=== PATIENT | female | born 1955 | race Two or more races ===

== ENCOUNTER 2021-01-17 16:30 | Emergency (ER) | payer BC ==
[~2021-01-17] VITALS: Ht 157.5 cm; Wt 81.6 kg
[~2021-01-17 16:30] MED LIST: ALBU18 IN; FLUT500M6 IN; HYDR25TA4 PO; INSLANTI SC; LISI20TA28 PO; MULTTAB99 PO; SITA50TA13 PO; [UNRECOGNIZED DRUG - CODE] PO
[2021-01-17 18:33] LABS: Basophils # (auto) 0.1 10 ^3/uL (0-0.2); Basophils % (auto) 0.9 % (0.0-2.0); Eosinophils # (auto) 0.2 10 ^3/uL (0-0.8); Eosinophils % (auto) 1.7 % (0.0-7.0); Hematocrit 39.8 % (36.0-46.0); Hemoglobin 12.2 g/dL (12.2-16.2); Lymphocytes # (auto) 1.1 10 ^3/uL (0.4-5.4); Lymphocytes % (auto) 8.3 % (10.0-50.0); Mean Corpuscular Hemoglobin 19.2 pg (28.0-32.0); Mean Corpuscular Hgb Conc. 30.6 g/dL (32.0-36.0); Mean Corpuscular Volume 62.8 fL (80.0-100.0); Monocytes # (auto) 0.7 10 ^3/uL (0-1.3); Monocytes % (auto) 5.7 % (0.0-12.0); Neutrophils # (auto) 10.7 10 ^3/uL (1.6-8.6); Neutrophils % (auto) 83.4 % (37.0-80.0); Red Blood Cells 6.34 10^6/uL (4.0-5.20); Red Cell Distribution Width 14.9 % (11.8-14.3); White Blood Cell 12.8 10^3/uL (4.4-10.8)
[2021-01-17 18:52] LABS: Chloride 101 mmol/L (98-107); Potassium 3.9 mmol/L (3.5-5.1); Sodium 134 mmol/L (136-145)
[2021-01-17 19:03] LABS: Alanine Aminotransferase 31 U/L (13-56); Albumin 3.1 g/dL (3.4-5.0); Alkaline Phosphatase 86 U/L (45-117); Anion Gap 7 (5-15); Aspartate Aminotransferase 11 U/L (15-37); Bilirubin, Total 0.4 mg/dL (0.2-1.0); Blood Urea Nitrogen 14 mg/dL (7-18); Calcium 8.4 mg/dL (8.5-10.1); Carbon Dioxide 26 mmol/L (21-32); GFR African American 139 mL/min; GFR Non-African American 115 mL/min; Glucose 281 mg/dL (74-106); Total Protein 7.5 g/dL (6.4-8.2)
[2021-01-17 19:13] LABS: Urine Bacteria FEW /hpf (None Seen); Urine Blood Negative /uL (Negative); Urine Mucus FEW (None Seen); Urine Specific Gravity 1.023 (1.001-1.035); Urine WBC 6 /hpf (0 - 5)
[2021-01-18 05:55] VITALS: BP 102/53
== END 2021-01-18 06:02 | disposition home or self-care (01) ==
LOC: ER 16:30
DX: R10.12 Left upper quadrant pain (principal); R19.7 Diarrhea, unspecified; I10 Essential (primary) hypertension; E11.9 Type 2 diabetes mellitus without complications; E78.00 Pure hypercholesterolemia, unspecified; J45.909 Unspecified asthma, uncomplicated; Z91.018 Allergy to other foods; Z88.1 Allergy status to other antibiotic agents; Z88.8 Allergy status to other drugs, medicaments and biological substances; Z88.9 Allergy status to unspecified drugs, medicaments and biological substances; Z79.899 Other long term (current) drug therapy; Z90.89 Acquired absence of other organs; Z98.890 Other specified postprocedural states
CPT/HCPCS: 36415; 74176; 80053; 81001; 82962; 84484; 85025; 87426; 93005

== ENCOUNTER 2021-05-01 20:25 | Inpatient (IN) | payer BC ==
[~2021-05-01] VITALS: Ht 154.9 cm; Wt 85.0 kg
[2021-05-01] MEDS ORDERED: IPRATROPIUM BROM 0.5 MG/2.5ML INH SOL NEB ONE (22:15)
[2021-05-01] MEDS ORDERED: ALBUTEROL SULF 2.5 MG/0.5ML(0.5%) NEB SOLN NEB ONE (22:15)
[2021-05-01 22:16] LABS: Basophils # (auto) 0.1 10 ^3/uL (0-0.2); Basophils % (auto) 0.5 % (0.0-2.0); Lymphocytes # (auto) 0.7 10 ^3/uL (0.4-5.4); Monocytes # (auto) 0.4 10 ^3/uL (0-1.3); Monocytes % (auto) 2.8 % (0.0-12.0); Red Cell Distribution Width 15.4 % (11.8-14.3)
[2021-05-01 22:18] LABS: Eosinophils # (auto) 0.5 10 ^3/uL (0-0.8); Eosinophils % (auto) 3.3 % (0.0-7.0); Hemoglobin 11.3 g/dL (12.2-16.2); Lymphocytes % (auto) 4.5 % (10.0-50.0); Mean Corpuscular Hemoglobin 19.3 pg (28.0-32.0); Mean Corpuscular Hgb Conc. 30.4 g/dL (32.0-36.0); Mean Corpuscular Volume 63.5 fL (80.0-100.0); Neutrophils # (auto) 13.3 10 ^3/uL (1.6-8.6); Neutrophils % (auto) 88.9 % (37.0-80.0); Red Blood Cells 5.83 10^6/uL (4.0-5.20); White Blood Cell 14.9 10^3/uL (4.4-10.8)
[2021-05-01 22:34] LABS: Albumin 3.2 g/dL (3.4-5.0); Calcium 8.5 mg/dL (8.5-10.1); Magnesium 1.9 mg/dL (1.6-2.6); Potassium 3.4 mmol/L (3.5-5.1)
[2021-05-01 22:39] LABS: INR 1.01 (0.9-1.15)
[2021-05-01 22:45] LABS: BUN/Creatinine Ratio 25.9; Bilirubin, Total 0.7 mg/dL (0.2-1.0); Total Protein 7.2 g/dL (6.4-8.2)
[2021-05-01] MEDS ORDERED: DexAMETHasone SOD PHOS 10MG/1ML VIAL INJ IV ONE (22:45)
[2021-05-01] MEDS ORDERED: AZITHROMYCIN 500MG/ 250ML 250 ML IV ONE (22:45)
[2021-05-01] MEDS ORDERED: DEXTROSE (50%) 50ML SYRG IV PRN (23:45)
[2021-05-01] MEDS ORDERED: DOCUSATE SOD 100 MG CAP PO PRN (23:45)
[2021-05-01] MEDS ORDERED: ACETAMINOPHEN 500 MG TAB PO PRN (23:45)
[2021-05-01] MEDS ORDERED: ONDANSETRON HCL 4 MG/2 ML VIAL IV PRN (23:45)
[2021-05-01] MEDS ORDERED: ALBUTEROL SULF HFA 90MCG INH 200DOSE IN PRN (23:45)
[2021-05-01] MEDS ORDERED: POTASSIUM CHL 20 Meq TABLET PO ONE (23:45)
[2021-05-02] MEDS ORDERED: NITROGLYCERIN 0.4 MG SL TAB SL PRN (00:15)
[2021-05-02] MEDS ORDERED: MORPHINE SULFATE INJECTION 2 MG/ML SYRG IV PRN (00:15)
[2021-05-02] MEDS: HYDROcodone-ACET 5/325MG TAB PO PRN ×3 (00:54→21:44)
[2021-05-02] MEDS ORDERED: ALBUTEROL SULF 2.5 MG/0.5ML(0.5%) NEB SOLN ONE (06:10)
[2021-05-02] MEDS ORDERED: IPRATROPIUM BROM 0.5 MG/2.5ML INH SOL ONE (06:10)
[2021-05-02] MEDS ORDERED: ALBUTEROL SULF 2.5 MG/0.5ML(0.5%) NEB SOLN NEB ONE (06:15)
[2021-05-02] MEDS ORDERED: DexAMETHasone SOD PHOS 10MG/1ML VIAL INJ IV ONE (06:15)
[2021-05-02] MEDS ORDERED: IPRATROPIUM BROM 0.5 MG/2.5ML INH SOL NEB ONE (06:15)
[2021-05-02 06:18] LABS: Basophils # (auto) 0 10 ^3/uL (0-0.2); Eosinophils # (auto) 0 10 ^3/uL (0-0.8); Lymphocytes # (auto) 0.7 10 ^3/uL (0.4-5.4); Monocytes # (auto) 0.1 10 ^3/uL (0-1.3); Nucleated Red Blood Cells % 0.1 %
[2021-05-02 06:21] LABS: Hematocrit 36.9 % (36.0-46.0); Hemoglobin 11.1 g/dL (12.2-16.2); Lymphocytes % (auto) 5.2 % (10.0-50.0); Mean Corpuscular Hemoglobin 19.5 pg (28.0-32.0); Mean Corpuscular Hgb Conc. 30.2 g/dL (32.0-36.0); Mean Corpuscular Volume 64.6 fL (80.0-100.0); Neutrophils # (auto) 13.1 10 ^3/uL (1.6-8.6); Neutrophils % (auto) 93.8 % (37.0-80.0); Red Blood Cells 5.71 10^6/uL (4.0-5.20); Red Cell Distribution Width 15.3 % (11.8-14.3); White Blood Cell 13.9 10^3/uL (4.4-10.8)
[2021-05-02 06:33] LABS: BUN/Creatinine Ratio 21.9; Calcium 8.5 mg/dL (8.5-10.1)
[2021-05-02 06:38] LABS: Bilirubin, Total 0.6 mg/dL (0.2-1.0)
[2021-05-02 06:42] VITALS: BP 125/61
[2021-05-02] MEDS: ACCU-CHEK COMFORT CURVE STRIP VI SCH ×4 (07:45→21:39)
[2021-05-02] MEDS: InsuLIN REG 1unit/0.01ml Soln (100units/ml) SC SCH ×4 (07:52→21:41)
[2021-05-02] MEDS ORDERED: DexAMETHasone SOD PHOS 10MG/1ML VIAL INJ IV SCH (10:00)
[2021-05-02] MEDS ORDERED: CHOLECALCIFEROL (VITD3) 2,000 UNIT CAP/TAB PO SCH (10:00)
[2021-05-02] MEDS ORDERED: ZINC SULFATE 220mg CAP or TAB PO SCH (10:00)
[2021-05-02] MEDS ORDERED: ASCORBIC ACID 1,000 MG TAB PO SCH (10:00)
[2021-05-02] MEDS ORDERED: BUDESONIDE (INHALATION) 180 MCG IH IN SCH (10:00)
[2021-05-02] MEDS ORDERED: ENOXAPARIN SOD 40 MG/0.4 ML SYRINGE SC SCH (10:00)
[2021-05-02] MEDS ORDERED: ASPirin 81 mg TAB PO SCH (10:00)
[2021-05-02] MEDS: cefTRIAXone 1GM/50ML D5W 50 ML IV SCH (11:11)
[2021-05-02] MEDS: FAMOTIDINE (10MG/ML) 2ML VL IV SCH ×2 (11:12→21:38)
[2021-05-02] MEDS: MULTIPLE VITAMIN TAB PO SCH (11:12)
[2021-05-02] MEDS: AZITHROMYCIN 500MG/ 250ML 250 ML IV SCH (14:24)
[2021-05-02 14:50] VITALS: BP 106/57
[2021-05-02 15:10] LABS: Urine Bacteria FEW /hpf (None Seen); Urine Blood Negative /uL (Negative); Urine Mucus FEW (None Seen); Urine Specific Gravity 1.029 (1.001-1.035); Urine WBC 111 /hpf (0 - 5)
[2021-05-02] MEDS: ALBUTEROL SULF 2.5 MG/0.5ML(0.5%) NEB SOLN NEB PRN (15:15)
[2021-05-02] MEDS: methylPREDNISolone SOD SUCC 40 MG/ML VL IV SCH ×2 (15:55→21:38)
[2021-05-02] MEDS: guaiFENesin-CODEINE Liq 5 ML UD PO PRN ×2 (15:55→22:36)
[2021-05-02] MEDS: ATORVASTATIN 20 MG TAB PO SCH (21:39)
[2021-05-02] MEDS: MONTELUKAST SODIUM 10 MG TAB PO SCH (21:39)
[2021-05-02 22:00] VITALS: BP 128/68
[2021-05-03 05:00] VITALS: BP 113/71
[2021-05-03] MEDS: methylPREDNISolone SOD SUCC 40 MG/ML VL IV SCH (06:20)
[2021-05-03] MEDS: ACCU-CHEK COMFORT CURVE STRIP VI SCH ×3 (06:20→17:00)
[2021-05-03] MEDS: InsuLIN REG 1unit/0.01ml Soln (100units/ml) SC SCH ×4 (06:21→21:09)
[2021-05-03] MEDS: BUDESONIDE (INHALATION) 0.5 MG/2 ML NEB NEB SCH ×2 (06:35→22:00)
[2021-05-03] MEDS: ALBUTEROL SULF 2.5 MG/0.5ML(0.5%) NEB SOLN NEB PRN (06:35)
[2021-05-03] MEDS ORDERED: IOHEXOL 350 MG/ML 100ML IJ ONE (08:16)
[2021-05-03] MEDS: cefTRIAXone 1GM/50ML D5W 50 ML IV SCH (08:38)
[2021-05-03 09:31] VITALS: BP 119/70
[2021-05-03] MEDS: FAMOTIDINE (10MG/ML) 2ML VL IV SCH ×2 (10:30→21:08)
[2021-05-03] MEDS: MULTIPLE VITAMIN TAB PO SCH (10:30)
[2021-05-03] MEDS: AZITHROMYCIN 500MG/ 250ML 250 ML IV SCH (10:30)
[2021-05-03] MEDS: HCTZ 25 MG TAB PO SCH (10:30)
[2021-05-03 13:00] VITALS: BP 126/70
[2021-05-03] MEDS: IPRATROPIUM BROM 0.5 MG/2.5ML INH SOL NEB SCH ×3 (14:16→22:00)
[2021-05-03] MEDS: ALBUTEROL SULF 2.5 MG/0.5ML(0.5%) NEB SOLN NEB SCH ×3 (14:17→22:00)
[2021-05-03 17:07] VITALS: BP 136/70
[2021-05-03] MEDS: guaiFENesin-CODEINE Liq 5 ML UD PO PRN (20:30)
[2021-05-03] MEDS: ATORVASTATIN 20 MG TAB PO SCH (21:08)
[2021-05-03] MEDS: MONTELUKAST SODIUM 10 MG TAB PO SCH (21:08)
[2021-05-03 21:37] VITALS: BP 112/50
[2021-05-04] MEDS: ACCU-CHEK COMFORT CURVE STRIP VI SCH ×5 (00:07→22:05)
[2021-05-04] MEDS: HYDROcodone-ACET 5/325MG TAB PO PRN ×2 (04:42→22:05)
[2021-05-04 05:19] VITALS: BP 106/50
[2021-05-04] MEDS: InsuLIN REG 1unit/0.01ml Soln (100units/ml) SC SCH ×4 (06:10→22:19)
[2021-05-04] MEDS: ALBUTEROL SULF 2.5 MG/0.5ML(0.5%) NEB SOLN NEB SCH ×4 (06:21→18:40)
[2021-05-04] MEDS: IPRATROPIUM BROM 0.5 MG/2.5ML INH SOL NEB SCH ×4 (06:21→18:39)
[2021-05-04] MEDS: cefTRIAXone 1GM/50ML D5W 50 ML IV SCH (08:34)
[2021-05-04 08:37] VITALS: BP 110/62
[2021-05-04] MEDS: BUDESONIDE (INHALATION) 0.5 MG/2 ML NEB NEB SCH (09:37)
[2021-05-04] MEDS ORDERED: methylPREDNISolone SOD SUCC 40 MG/ML VL IV SCH (10:00)
[2021-05-04] MEDS: MULTIPLE VITAMIN TAB PO SCH (10:15)
[2021-05-04] MEDS: AZITHROMYCIN 500MG/ 250ML 250 ML IV SCH (10:15)
[2021-05-04] MEDS: HCTZ 25 MG TAB PO SCH (10:16)
[2021-05-04 12:55] VITALS: BP 110/62
[2021-05-04] MEDS: guaiFENesin-CODEINE Liq 5 ML UD PO PRN ×2 (13:51→22:14)
[2021-05-04 16:56] VITALS: BP 109/52
[2021-05-04] MEDS: metFORMIN HYDROCHLORIDE 500 MG TAB PO SCH (17:39)
[2021-05-04 22:00] VITALS: BP 128/65
[2021-05-04] MEDS ORDERED: INSULIN LANTUS (GLARGINE) 1 /0.01ml (100units/ml) SC SCH (22:00)
[2021-05-04] MEDS: ATORVASTATIN 20 MG TAB PO SCH (22:06)
[2021-05-04] MEDS: MONTELUKAST SODIUM 10 MG TAB PO SCH (22:06)
[2021-05-05] MEDS: ALBUTEROL SULF 2.5 MG/0.5ML(0.5%) NEB SOLN NEB SCH ×5 (00:32→18:49)
[2021-05-05] MEDS: BUDESONIDE (INHALATION) 0.5 MG/2 ML NEB NEB SCH ×3 (00:32→18:50)
[2021-05-05] MEDS: IPRATROPIUM BROM 0.5 MG/2.5ML INH SOL NEB SCH ×5 (00:33→18:49)
[2021-05-05 05:00] VITALS: BP 124/60
[2021-05-05] MEDS: ACCU-CHEK COMFORT CURVE STRIP VI SCH ×3 (06:21→17:32)
[2021-05-05] MEDS: InsuLIN REG 1unit/0.01ml Soln (100units/ml) SC SCH ×3 (06:22→17:58)
[2021-05-05 07:52] LABS: Basophils # (auto) 0.1 10 ^3/uL (0-0.2); Basophils % (auto) 0.8 % (0.0-2.0); Eosinophils # (auto) 0.9 10 ^3/uL (0-0.8); Monocytes # (auto) 0.8 10 ^3/uL (0-1.3)
[2021-05-05 07:54] LABS: Eosinophils % (auto) 6.1 % (0.0-7.0); Hematocrit 33.7 % (36.0-46.0); Hemoglobin 10.4 g/dL (12.2-16.2); Lymphocytes # (auto) 2.3 10 ^3/uL (0.4-5.4); Lymphocytes % (auto) 15.8 % (10.0-50.0); Mean Corpuscular Hemoglobin 19.6 pg (28.0-32.0); Mean Corpuscular Hgb Conc. 30.9 g/dL (32.0-36.0); Monocytes % (auto) 5.8 % (0.0-12.0); Neutrophils # (auto) 10.3 10 ^3/uL (1.6-8.6); Neutrophils % (auto) 71.5 % (37.0-80.0); Nucleated Red Blood Cells % 0.1 %; Red Cell Distribution Width 15.4 % (11.8-14.3); White Blood Cell 14.4 10^3/uL (4.4-10.8)
[2021-05-05 07:57] LABS: Mean Corpuscular Volume 63.5 fL (80.0-100.0)
[2021-05-05] MEDS: metFORMIN HYDROCHLORIDE 500 MG TAB PO SCH (08:00)
[2021-05-05 08:09] LABS: Potassium 3.7 mmol/L (3.5-5.1)
[2021-05-05 08:15] LABS: BUN/Creatinine Ratio 33.3
[2021-05-05 09:00] VITALS: BP 117/65
[2021-05-05] MEDS ORDERED: predniSONE 20 MG TAB PO SCH (10:00)
[2021-05-05 10:31] VITALS: BP 124/60
[2021-05-05] MEDS: cefTRIAXone 1GM/50ML D5W 50 ML IV SCH (10:34)
[2021-05-05] MEDS: HCTZ 25 MG TAB PO SCH (10:36)
[2021-05-05] MEDS: MULTIPLE VITAMIN TAB PO SCH (10:36)
[2021-05-05] MEDS: AZITHROMYCIN 500MG/ 250ML 250 ML IV SCH (10:39)
[2021-05-05] MEDS: guaiFENesin-CODEINE Liq 5 ML UD PO PRN (12:41)
[2021-05-05 13:00] VITALS: BP 121/60
[2021-05-05] MEDS: HYDROcodone-ACET 5/325MG TAB PO PRN (14:27)
[2021-05-05 16:58] VITALS: BP 129/68
[2021-05-05 18:19] VITALS: BP 117/65
== END 2021-05-05 20:10 | disposition home or self-care (01) | DRG 189 ==
LOC: ER 20:25 → EDUNIT# 05-02 00:14 → TELE 05-02 00:14 → TELE-CENTR 05-02 12:44 → CENTRAL 05-05 07:39
PROVIDERS: ADMIT Nurse Practitioner Family; ATTEND Internal Medicine
DX: J96.01 Acute respiratory failure with hypoxia (principal); J45.901 Unspecified asthma with (acute) exacerbation; J98.11 Atelectasis; J98.19 Other pulmonary collapse; E87.6 Hypokalemia; E78.5 Hyperlipidemia, unspecified; I10 Essential (primary) hypertension; E11.65 Type 2 diabetes mellitus with hyperglycemia; Z20.822 Contact with and (suspected) exposure to COVID-19; D72.829 Elevated white blood cell count, unspecified; E66.9 Obesity, unspecified; Z87.442 Personal history of urinary calculi; Z90.49 Acquired absence of other specified parts of digestive tract; Z88.8 Allergy status to other drugs, medicaments and biological substances
CPT/HCPCS: 36415; 71045; 71275; 80048; 80053; 81001; 82728; 82962; 83036; 83605; 83615; 83735; 83880; 84484; 85025; 85379; 85610; 87040; 87426; 94640; 96365; 96375; G0378; J0696; J1100; J1815; J3490